=== PATIENT | female | born 1960 | race Caucasian/White ===

== ENCOUNTER → 2017-10-08 | Outpatient (CLI) | payer OTHER ==
[~2017-10-08] MED LIST: CALC-393 PO; CHOL2000 PO; INSPMPHMLG
--- NOTE | 2017-10-08 16:35 | DIAGNOSTIC IMAGING REPORT ---
L RIBS UNILATERAL WITH PA CHEST HISTORY: 56 years-old Female S39.92XA Back [id number] History of [id number] acute back injury and left-sided rib pain status post fall COMPARISON: Chest radiographs 04/24/2012 TECHNIQUE: PA view of the chest with 4 views of the left ribs FINDINGS: Cardiomediastinal and hilar silhouettes are within normal limits. Atherosclerosis of the aorta. No pneumothorax, pleural effusion, focal airspace consolidation or overt pulmonary edema. Mild levoscoliosis of the upper thoracic spine. No acute displaced rib fracture identified. IMPRESSION: 1. No acute process of the chest. 2. No acute rib fracture identified. The above report was generated using voice recognition software. It may contain grammatical, syntax or spelling errors. Electronically signed by: Wesly Salamanca M.D. 10/08/2017 4:34 PM Dictated Date/Time: 10/08/2017 4:31 PM
--- NOTE | 2017-10-08 16:37 | DIAGNOSTIC IMAGING REPORT ---
THORACIC SPINE 3 VIEWS ROUTINE HISTORY: Trauma. Pain. S39.92XA Back [id number] History of [id number] COMPARISON: None. FINDINGS: There is no fracture. Mild scoliosis. Mild degenerative disc change throughout the entire thoracic region. IMPRESSION: Mild scoliosis. Mild degenerative change. No acute process. The above report was generated using voice recognition software. It may contain grammatical, syntax or spelling errors. Electronically signed by: Hugo Al M.D. 10/08/2017 4:35 PM Dictated Date/Time: 10/08/2017 4:35 PM
== END | disposition home or self-care (01) ==
LOC: C.RAD1850 15:49
PROVIDERS: ATTEND Internal Medicine
DX: S39.92XA Unspecified injury of lower back, initial encounter (principal); Z91.81 History of falling; X58.XXXA Exposure to other specified factors, initial encounter

== ENCOUNTER → 2018-04-16 | Day surgery (SDC) | payer OTHER ==
[2018-04-09 10:24] VITALS: Ht 160 cm; Wt 77.3 kg
[~2018-04-16] VITALS: Ht 160 cm; Wt 77.3 kg
[~2018-04-16] MED LIST changes: -CALC-393 PO; +INSULIN HUMAN REGULAR IV SCH; +LIDOCAINE HCL 2% 2 ML VIAL (20MG/ML) ONE; +NovoLIN-R INSULIN PER UNIT CHARGE ONE; +PROPOFOL IV EMULSION 10 MG/ML 20 ML VIAL ONE; +SODIUM CHLORIDE 0.9% 500ML 500 ML IV ONE
--- NOTE | 2018-04-16 11:16 | Endo History and Physical ---
History & Physical Date of Service: Apr 16, 2018. Chief Complaint: Screening Referring Physician: Dr. Bi Watkins History of Present Illness 57 yo CF who presents for screening colonoscopy. Past Surgical History Hx Cardiac Surgery: No Hx Internal Defibrillator: No Hx Pacemaker: No Hx Abdominal Surgery: No Hx of Implantable Prosthesis: No Hx Post-Op Nausea and Vomiting: No Hx Cancer Surgery: No Hx Thoracic Surgery: No Hx Orthopedic: Yes (SINUS SURGERY-LOCAL ANESTHESIA ONLY) Hx Urinary Tract Surgery: No Family History None Social History Smoking Status: Never Smoker Hx Substance Use: No Hx Alcohol Use: No Allergies Coded Allergies: No Known Allergies (Verified , 04/16/18) Current Medications Reported Home Medications Medications Dose Route/Sig Max Daily Dose Days Date Category Vitamin D3 (Cholecalciferol) 2,000 Unit Cap 1 Cap PO DAILY 07/04/13 Reported Insulin Humalog Pump (Insulin Human Lispro) Pump 1 Ea N/A UD 07/04/13 Reported Vital Signs Weight (Kilograms): 77.27 Height (Feet): 5 Height (Inches): 3 Date Time Temp Pulse Resp B/P (MAP) Pulse Ox O2 Delivery O2 Flow Rate FiO2 04/16/18 10:38 36.7 90 18 136/66 (89) 96 Room Air Physical Exam General Appearance: WD/WN, no apparent distress Respiratory/Chest: Auscultation: breath sounds normal Cardiovascular: Heart Auscultation: RRR Abdomen: Bowel Sounds: normal Inspection & Palpation: soft, non-distended, no tenderness, guarding & rebound Assessment and Plan Assessment: 57 yo CF who presents for screening colonoscopy. Plan: Proceed with colonoscopy.
--- NOTE | 2018-04-16 12:19 | Discharge Instructions ---
Endoscopy Patient Instructions Date / Procedure(s) Performed Apr 16, 2018. Colonoscopy Allergy Information Coded Allergies: No Known Allergies (Verified , 04/16/18) Discharge Date / Findings Apr 16, 2018. Colon polyp Diverticulosis Internal hemorrhoids Medication Instructions Stopped Medication(s): Patient didn't take anything. OK to resume all medications today as prescribed Reported Home Medications Medications Dose Route/Sig Max Daily Dose Days Date Category Vitamin D3 (Cholecalciferol) 2,000 Unit Cap 1 Cap PO DAILY 07/04/13 Reported Insulin Humalog Pump (Insulin Human Lispro) Pump 1 Ea N/A UD 07/04/13 Reported Provider Instructions Activity Restrictions - No exercising or heavy lifting for 24 hours. - Do not drink alcohol the day of the procedure. - Do not drive a car or operate machinery until the day after the procedure. - Do not make any important decisions or sign important papers in 24 hours after the procedure. Following Day: - Return to full activity which may include returning to work/school. Diet Start your diet with liquids and light foods (jello, soup, juice, toast). Then eat your usual diet if not nauseated. Treatment For Common After Affects For mild abdominal pain, bloating, or excessive gas: - Rest - Eat lightly - Lie on right side Follow-Up Information Follow-up with Dr. Bi Watkins as scheduled Anesthesia Information What You Should Know You have had a procedure that required some medicine to reduce anxiety and discomfort. This treatment is called moderate sedation. After receiving the treatment, you may be sleepy, but you will be able to breathe on your own. The effects of the treatment may last for several hours. Follow these instructions along with Activity/Diet recommendations noted above: * Do NOT do anything where dizziness or clumsiness would be dangerous. * Rest quietly at home today, then you can be up and about tomorrow. * Have a responsible person stay with you the rest of today. * You may have had an I.V. today. If so, you may take the dressing off later today. Recommendations Call your doctor if: * Trouble breathing * Continuous vomiting for more than 24 hours * Temperature above 101 degrees * Severe abdominal pain or bloating * Pain not relieved by pain medicine ordered * There is increased drainage or redness from any incision * A large amount of rectal bleeding greater than 2-3 tablespoons. (If you had a polyp/s removed or have hemorrhoids, a small amount of blood - from the rectum is to be expected.) * You have any unanswered questions or concerns. IN THE EVENT OF A SERIOUS EMERGENCY, GO TO THE NEAREST EMERGENCY ROOM Your discharge instructions were prepared by provider Nathan Meyer. Patient Instructions Signature Page Giselle Hussein Patient (or Guardian) Signature/Date: I have read and understand the instructions given to me by my caregivers. Caregiver/RN/Doctor Signature/Date: The above-named patient and/or guardian has received patient instructions on this date. + Original Patient Signature Page (only) stays with chart. Please make copy for patient.
--- NOTE | 2018-04-16 12:30 | GI REPORT ---
Patient Name: Giselle Hussein Procedure Date: 04/16/2018 11:41 AM Date of : 1960 Admit Type: Outpatient Age: 57 Gender: Female Attending MD: Nathan Meyer DO Procedure: Colonoscopy Providers: Nathan Meyer DO Referring MD: Varinder Burdick Indications: Screening for colorectal malignant neoplasm Medicines: Monitored Anesthesia Care Complications: No immediate complications. Estimated Blood Loss: Estimated blood loss: none. Procedure: Pre-Anesthesia Assessment: - Prior to the procedure, a History and Physical was performed, and patient medications and allergies were reviewed. The patient's tolerance of previous anesthesia was also reviewed. The risks and benefits of the procedure and the sedation options and risks were discussed with the patient. All questions were answered, and informed consent was obtained. Prior Anticoagulants: The patient has taken no previous anticoagulant or antiplatelet agents. ASA Grade Assessment: II - A patient with mild systemic disease. After reviewing the risks and benefits, the patient was deemed in satisfactory condition to undergo the procedure. After I obtained informed consent, the scope was passed under direct vision. Throughout the procedure, the patient's blood pressure, pulse, and oxygen saturations were monitored continuously. The scope was introduced through the anus and advanced to the terminal ileum. The colonoscopy was performed without difficulty. The patient tolerated the procedure well. The quality of the bowel preparation was good. The terminal ileum, ileocecal valve, appendiceal orifice, and rectum were photographed. Findings: The perianal and digital rectal examinations were normal. A 3 mm polyp was found in the sigmoid colon. The polyp was sessile. The polyp was removed with a cold snare. Resection and retrieval were complete. Multiple small-mouthed diverticula were found in the sigmoid colon. Non-bleeding internal hemorrhoids were found during retroflexion. The hemorrhoids were small. Impression: - One 3 mm polyp in the sigmoid colon, removed with a cold snare. Resected and retrieved. - Diverticulosis in the sigmoid colon. - Non-bleeding internal hemorrhoids. Recommendation: - Resume previous diet. - Continue present medications. - Repeat colonoscopy for surveillance based on pathology results. - Return to primary care physician as previously scheduled. Nathan Meyer DO 04/16/2018 12:29:44 PM This report has been signed electronically. Note Initiated On: 04/16/2018 11:41 AM Number of Addenda: 0 I attest to the content of the Intraoperative Record and orders documented therein, exceptions below {[id number]}
[2018-04-16 12:45] VITALS: BP 96/76; PULSE 74; O2SAT 98
--- NOTE | 2018-04-16 12:58 | Anesthesiology Progress Note ---
Anesthesia Post Op Note Date & Time Apr 16, 2018 at 12:57 Vital Signs Pain Intensity: 0 Vital Signs Past 12 Hours Date Time Temp Pulse Resp B/P (MAP) Pulse Ox O2 Delivery O2 Flow Rate FiO2 04/16/18 12:45 74 18 96/76 (83) 98 Room Air 04/16/18 12:31 74 18 121/73 (89) 98 Room Air 04/16/18 12:16 36.7 70 16 108/65 (79) 96 Room Air 04/16/18 10:38 36.7 90 18 136/66 (89) 96 Room Air Notes Mental Status: alert / awake / arousable, participated in evaluation Pt Amnestic to Procedure: Yes Nausea / Vomiting: adequately controlled Pain: adequately controlled Airway Patency, RR, SpO2: stable & adequate BP & HR: stable & adequate Hydration State: stable & adequate Anesthetic Complications: no major complications apparent Patient tolerating PO and her insulin pump is at basal rate at the time of discharge
== END | disposition home or self-care (01) ==
LOC: C.GI 10:13
PROVIDERS: ATTEND Internal Medicine
DX: Z12.11 Encounter for screening for malignant neoplasm of colon (principal); D12.5 Benign neoplasm of sigmoid colon; K57.30 Diverticulosis of large intestine without perforation or abscess without bleeding; K64.8 Other hemorrhoids; E10.9 Type 1 diabetes mellitus without complications; N18.9 Chronic kidney disease, unspecified